=== PATIENT | female | born 1990 | race Asian ===

== ENCOUNTER 2017-09-18 23:15 | Inpatient (IN) | payer MEDICAID ==
[~2017-09-18] VITALS: Ht 154.9 cm; Wt 56.7 kg
[2017-09-18 23:31] VITALS: BP 131/82
[2017-09-18] MEDS ORDERED: NACL 0.9% 500 ML IV ONE (23:32)
[2017-09-18] MEDS ORDERED: LACTATED RINGERS 1,000 ML IV SCH (23:32)
[2017-09-18] MEDS ORDERED: NALBUPHINE 10 MG/ML AMP IVP PRN (23:35)
[2017-09-18] MEDS ORDERED: OXYTOCIN 10 UNITS/ML VIAL IM SCH (23:35)
[2017-09-18] MEDS ORDERED: OXYTOCIN 20 UNITS in LACTATED RINGERS 1,000 ML IV SCH (23:40)
[2017-09-19 00:01] LABS: BASOPHILS % (AUTO) 0.5 % (0.0-2.0); EOSINOPHILS # (AUTO) 0.2 K/uL (0-0.4); EOSINOPHILS % (AUTO) 1.8 % (0.0-4.0); HEMATOCRIT 34.6 % (36-48); HEMOGLOBIN 11.6 g/dL (12.0-16.0); LYMPHOCYTES # (AUTO) 1.8 K/uL (2.5-16.5); LYMPHOCYTES % (AUTO) 19.2 % (20.5-51.1); MEAN CORPUSCULAR HEMOGLOBIN 26 pg (27-31); MEAN CORPUSCULAR HGB CONC 34 g/dL (33-37); MEAN CORPUSCULAR VOLUME 76.6 fL (80-94); MONOCYTES # (AUTO) 0.6 K/uL (0.8-1.0); MONOCYTES % (AUTO) 6.5 % (1.7-9.3); NEUTROPHILS # (AUTO) 6.8 K/uL (1.8-7.7); PLATELET COUNT (AUTO) 218 K/uL (140-450); RED BLOOD CELL COUNT(AUTO) 4.51 MIL/uL (4.20-5.40); RED CELL DISTRIBUTION WIDTH 15.7 % (11.6-13.7); WHITE BLOOD COUNT (AUTO) 9.5 K/uL (4.8-10.8)
[2017-09-19] MEDS ORDERED: IBUPROFEN 800 MG TAB PO PRN (00:05)
[2017-09-19] MEDS ORDERED: oxyCODONE/APAP 5/325 MG 1 TAB TAB PO PRN (00:05)
[2017-09-19] MEDS ORDERED: HYDROcodone/APAP 5/325 MG 1 TAB TAB PO PRN (00:05)
[2017-09-19] MEDS ORDERED: OXYTOCIN 10 UNITS/ML VIAL IM PRN (00:05)
[2017-09-19] MEDS ORDERED: BENZOCAINE/MENTHOL 20%-0.5% 60 GM CAN TP PRN (00:05)
[2017-09-19] MEDS ORDERED: TEMAZEPAM 15 MG CAP PO PRN (00:05)
[2017-09-19] MEDS ORDERED: METHYLERGONOVINE 0.2 MG/ML AMP IM PRN (00:05)
[2017-09-19] MEDS ORDERED: MEASLES, MUMPS, AND RUBELLA 1 VIAL SQVAC PRN (00:05)
[2017-09-19] MEDS ORDERED: AMPICILLIN 2,000 MG VIAL ONE (00:16)
[2017-09-19 00:24] LABS: APPEARANCE,URINE CLEAR (CLEAR); BILIRUBIN,URINE NEGATIVE (NEGATIVE); BLOOD, URINE 2+ (NEGATIVE); COLOR,URINE YELLOW (YELLOW); LEUKOCYTE ESTERASE ,URINE 1+ (NEGATIVE); NITRITE, URINE NEGATIVE (NEGATIVE); UGLUCOSE TRACE (NEGATIVE)
[2017-09-19] MEDS ORDERED: AMPICILLIN 2,000 MG in NACL 0.9% MINI-BAG PLUS 100 ML IV SCH (00:30)
[2017-09-19] MEDS ORDERED: OXYTOCIN 10 UNITS/ML VIAL ONE (00:41)
[2017-09-19] MEDS ORDERED: OXYTOCIN 20 UNITS/LR PREMIX 1,000 ML IV ONE (00:42)
[2017-09-19 00:55] LABS: RBC,URINE 11-20 (MOD) /HPF (0-5)
[2017-09-19] MEDS ORDERED: PROMETHAZINE 25 MG/ML VIAL ONE (01:18)
[2017-09-19] MEDS ORDERED: NALBUPHINE 10 MG/ML AMP ONE (01:18)
[2017-09-19] MEDS ORDERED: FERR-252 PO (03:39)
[2017-09-19] MEDS ORDERED: PREN-546 PO (03:39)
[2017-09-19] MEDS ORDERED: AMPICILLIN 1,000 MG in NACL 0.9% MINI-BAG PLUS 50 ML IV SCH (04:00)
--- NOTE | 2017-09-19 06:41 | NUR ---
PATIENT HAS BEEN SCREENED AND CATEGORIZED LOW NUTRITION RISK. PATIENT WILL BE SEEN WITHIN 7 DAYS OF ADMISSION. 09/25/17 LAURIE WARD MS, RDN
[2017-09-19] MEDS ORDERED: DOCUSATE SOD/SENNA 50/8.6 MG 1 TAB PO SCH (21:00)
[2017-09-20 08:59] LABS: HEMATOCRIT 38.3 % (36-48); HEMOGLOBIN 12.6 g/dL (12.0-16.0)
[2017-09-21] MEDS ORDERED: IBUP-2213 PO (10:34)
== END 2017-09-21 23:30 | disposition home or self-care (01) | DRG 560 ==
LOC: MLD 23:15 → MFCC 09-19 05:52 → UNDODISIN 09-22 01:20
PROVIDERS: ADMIT Obstetrics & Gynecology; ATTEND Obstetrics & Gynecology
PROC: 10E0XZZ Delivery of Products of Conception, External Approach (ICD-10-PCS; principal; 2017-09-19)
PROC: 0HQ9XZZ Repair Perineum Skin, External Approach (ICD-10-PCS; 2017-09-19)
DX: O99.824 Streptococcus B carrier state complicating childbirth (principal); Z37.0 Single live birth; O70.0 First degree perineal laceration during delivery; Z3A.38 38 weeks gestation of pregnancy
CPT/HCPCS: 36415; 51702; 59409; 81001; 85018; 85025; 86592; 86886; 86900; 86901; 87086; 87340; J0290; J2300; J2550; J2590; J7120